=== PATIENT | female | born 1980 | race Caucasian/White ===

== ENCOUNTER → 2024-04-14 | Outpatient (CLI) | payer OTHER ==
--- NOTE | 2024-04-14 09:00 | MM ---
Reason for Exam: Screening (asymptomatic). Last mammogram was performed 1 year(s) and 1 month(s) ago. Patient History: Menarche at age 14. First Full-Term at age 33. Late child-bearing (after 30). Patient has history of breast feeding. Hormonal Contraceptives, from age 19 until age 29. 10/20/2004, Bilateral Implants. Maternal grandmother had breast cancer at or over age 50. Last menstrual period: 04/02/2024 Risk Values: Marni 5 year model risk: 0.9%. NCI Lifetime model risk: 12.1%. Tissue Density: The breasts are extremely dense, which lowers the sensitivity of mammography. Findings: Analyzed By CAD. There is no suspicious group of microcalcifications or new suspicious mass in either breast. Bilateral implants are intact. Overall Assessment: Benign, BI-RAD 2 Management: Screening Mammogram of both breasts in 1 year. . Patient should continue monthly self-breast exams. A clinical breast exam by your physician is recommended on an annual basis. This exam should not preclude additional follow-up of suspicious palpable abnormalities. Note on Marni scores and lifetime risk: 1. A Marni score greater than 3% is considered moderate risk. If this is the case, consider specialist referral to assess eligibility for a risk reducing agent. 2. If overall lifetime risk for the development of breast cancer is 20% or higher, the patient may qualify for future screening with alternating mammogram and breast MRI. Electronically signed and approved by: [place] M.D. Radiologis
== END | disposition home or self-care (01) ==
LOC: RADMAMWWP 07:21
PROVIDERS: ATTEND Family Medicine
DX: Z12.31 Encounter for screening mammogram for malignant neoplasm of breast (principal); R92.343 Mammographic extreme density, bilateral breasts; Z80.3 Family history of malignant neoplasm of breast
CPT/HCPCS: 77063; 77067

== ENCOUNTER → 2025-01-10 | Outpatient (CLI) | payer OTHER ==
--- NOTE | 2025-01-10 08:26 | US ---
EXAMINATION TYPE: US abdomen comp/pelvis limited DATE OF EXAM: 01/10/2025 COMPARISON: NONE CLINICAL INDICATION: Female, 44 years old with history of R10.31 RLQ PAIN; RLQ pain x several months, spotting Hx cysts TECHNIQUE: Grayscale color Doppler imaging of the abdomen and pelvis. FINDINGS: EXAM MEASUREMENTS: Liver Length: 13.6 cm Gallbladder Wall: 0.2 cm CBD: 0.2 cm Spleen: 9.8 cm Right Kidney: 10.6x3.2x5.0 cm Left Kidney: 10.7x5.4x5.1 cm Pancreas: tail obscured by bowel Liver: 13.6 Gallbladder: 0.5cm likely sludge ball, began to float after rolling from LLD to supine CBD: wnl Spleen: increased echogenicity and scatted echogenic foci ?Splenic granulomatous disease? Right Kidney: tiny echogenic area measuring 0.5x0.4x0.5cm ?angiomyolipoma? . Given size it is pre sumably benign. Left Kidney: No hydronephrosis or masses seen Upper IVC: large diameter however shows normal compressibility Abd Aorta: wnl Bladder: wnl IMPRESSION: No acute findings seen to account for patient's symptoms. Gallstones/gallbladder sludge i s seen without ultrasound evidence for acute cholecystitis. [facility], , 01/10/2025 8:24 AM
--- NOTE | 2025-01-10 08:28 | US ---
EXAMINATION TYPE: US transvaginal DATE OF EXAM: 01/10/2025 COMPARISON: NONE CLINICAL INDICATION: Female, 44 years old with history of R10.31 RLQ PAIN; RLQ pain x several months, spotting TECHNIQUE: Transvaginal (TV). Transvaginal sonographic images were medically necessary to better assess the following anatomy: Ovar ies Doppler imaging: Not performed. FINDINGS: Date of LMP: 01/01/25 EXAM MEASUREMENTS: Uterus: 8.2x4.5x5.7 cm Endometrial Stripe: 0.5 cm Right Ovary: 4.3x3.1x4.1 cm Left Ovary: 3.0x0.9x1.2 cm 1. Uterus: Anteverted wnl 2. Endometrium: wnl 3. Right Ovary: 3.2 x 2.7 cm complex cyst with internal echoes and linear strands ?hemorrhagic cyst? 4. Left Ovary: wnl 5. Bilateral Adnexa: wnl 6. Posterior cul-de-sac: wnl IMPRESSION: No suspicious findings seen to cause for patient's symptoms. There is 3.[address] suspected hemorrhagic cyst in the right ovary. O-RADS 2 lesion, almost certainly benign. Consider repeat ultrasound in 3 months time to reevaluate. Advise gynecology referral for management of clini eleonora issues. O-RADS 2021 [email or web address] [facility], , 01/10/2025 8:26 AM
== END | disposition home or self-care (01) ==
LOC: RADUSWWP 06:58
PROVIDERS: ATTEND Family Medicine
DX: N83.201 Unspecified ovarian cyst, right side (principal)
CPT/HCPCS: 76700; 76830; 76857

== ENCOUNTER → 2025-04-29 | Outpatient (CLI) | payer OTHER ==
--- NOTE | 2025-04-29 08:17 | MM ---
Reason for Exam: Hx of breast augmentation, asymptomatic. Last mammogram was performed 1 year(s) and 1 month(s) ago. Patient History: Menarche at age 14. First Full-Term at age 33. Late child-bearing (after 30). Perimenopausal. Patient has history of breast feeding. Hormonal Contraceptives, from age 19 until age 29. 10/20/2004, Bilateral Implants. Maternal grandmother had breast cancer at or over age 50. Risk Values: Marni 5 year model risk: 1.0%. NCI Lifetime model risk: 12.0%. Prior Study Comparison: 10/29/2022 Bilateral MG 3D screening mammo w/cad, Unknown. 03/12/2023 Bilateral MG 3D screening mammo w/cad, Unknown. 04/14/2024 Bilateral MG 3D screen mammo imp/cad., [facility]. Tissue Density: The breasts are extremely dense, which lowers the sensitivity of mammography. Findings: Analyzed By CAD. Bilateral breast implants are redemonstrated. There is no suspicious group of microcalcifications or new suspicious mass in either breast. Overall Assessment: Negative, BI-RAD 1 Management: Screening Mammogram of both breasts in 1 year. Some advice annual bilateral breast ultrasound surveillance and/or annual contrast enhanced mammography surveillance in patients with background extreme dense tissue. Patient should continue monthly self-breast exams. A clinical breast exam by your physician is recommended on an annual basis. This exam should not preclude additional follow-up of suspicious palpable abnormalities. Note on Marni scores and lifetime risk: 1. A Marni score greater than 3% is considered moderate risk. If this is the case, consider specialist referral to assess eligibility for a risk reducing agent. 2. If overall lifetime risk for the development of breast cancer is 20% or higher, the patient may qualify for future screening with alternating mammogram and breast MRI. [facility], , 04/29/2025 8:14 AM. Electronically signed and approved by: Sixto Porras M.D.
== END | disposition home or self-care (01) ==
LOC: RADMAMWWP 07:21
PROVIDERS: ATTEND Obstetrics & Gynecology
DX: Z12.31 Encounter for screening mammogram for malignant neoplasm of breast (principal); R92.343 Mammographic extreme density, bilateral breasts; Z92.0 Personal history of contraception; Z80.3 Family history of malignant neoplasm of breast
CPT/HCPCS: 77063; 77067